=== PATIENT | male | born 1950 | race Caucasian/White ===

== ENCOUNTER → 2017-11-01 | Outpatient (CLI) | payer MEDICARE, OTHER ==
[~2017-11-01] MED LIST: ALLO300T2 PO; ASPI81TA81 PO; ASPI81TA82 PO; CLOM25CA PO; CLOP75TA PO; COZA50TA PO; EVOL1.7I IM; FENO160T PO; FISH1000 PO; GLUCTAB PO; INDO50CA PO; KRIL1CAP PO; METF500T PO; METO25TA3 PO; MULT-65 PO; OMEP20TA PO; OMEP20TA93 PO; PERC5TAB12 PO; POTA1080 PO; TAB-TAB PO
[2017-11-01 10:04] LABS: AUTOMATED NEUTROPHIL # 4.2 TH/MM3 (1.8-7.7); BASOPHIL % 0.2 % (0.0-2.0); EOSINOPHIL # 0.2 TH/MM3 (0-0.4); EOSINOPHIL % 2.6 % (0.0-4.0); HEMATOCRIT 45.2 % (39.0-51.0); HEMOGLOBIN 15.2 GM/DL (13.0-17.0); LYMPH % 31.4 % (9.0-44.0); LYMPHOCYTE # 2.3 TH/MM3 (1.0-4.8); MEAN CELL VOLUME 88.2 FL (80.0-100.0); MEAN CORPUSCULAR HEMOGLOBIN 29.7 PG (27.0-34.0); MEAN CORPUSCULAR HGB CONC 33.7 % (32.0-36.0); MEAN PLATELET VOLUME 8.2 FL (7.0-11.0); MONO % 8.3 % (0.0-8.0); MONOCYTE # 0.6 TH/MM3 (0-0.9); NEUT % 57.5 % (16.0-70.0); PLATELET COUNT 187 TH/MM3 (150-450); RED BLOOD COUNT 5.13 MIL/MM3 (4.50-5.90); RED CELL DISTRIBUTION WIDTH 14.6 % (11.6-17.2); WHITE BLOOD COUNT 7.3 TH/MM3 (4.0-11.0)
[2017-11-01 10:10] LABS: BILIRUBIN, URINE NEG (NEG); BLOOD, URINE NEG (NEG); GLUCOSE,URINE NEG (NEG); KETONE, URINE NEG (NEG); MUCUS URINE FEW /lpf (OCC); NITRITE,URINE NEG (NEG); PH, URINE 5.5 (5.0-8.5); SQUAMOUS EPITHELIAL CELL URINE <1 /hpf (0-5); URINE COLOR YELLOW (YELLW/STRAW); URINE LEUKOCYTE ESTERASE NEG (NEG)
[2017-11-01 10:17] LABS: PROTHROMBIN TIME - PATIENT 10.6 SEC (9.8-11.6)
--- NOTE | 2017-11-01 10:28 | RADRPT ---
EXAM DATE/TIME: 11/01/2017 09:45 [place] COMPARISON: No previous studies available for comparison. INDICATIONS : Evaluate for communicable diseases, pneumonia,pneumothorax. MEDICAL HISTORY : Myocardial infarction. SURGICAL HISTORY : CABG. ENCOUNTER: Initial ACUITY: 1 day PAIN SCORE: 0/10 LOCATION: Bilateral chest FINDINGS: Lungs are focally clear. No pleural effusion is evident. Cardiomediastinal contours are satisfactory. There has been sternotomy and CABG surgery with atrial clip present. CONCLUSION: No acute disease Guillermo Joiner MD on November 01, 2017 at 10:25 Board Certified Radiologist. This report was verified electronically.
[2017-11-01 10:31] LABS: ALBUMIN 4.3 GM/DL (3.4-5.0); AST (GOT) 24 U/L (15-37); BICARBONATE 24.5 MEQ/L (21.0-32.0); BLOOD UREA NITROGEN 24 MG/DL (7-18); CALCIUM 9.9 MG/DL (8.5-10.1); CHLORIDE 109 MEQ/L (98-107); CREATININE 1.71 MG/DL (0.60-1.30); GLOMERULAR FILTRATION RATE 40 ML/MIN (>89); GLUCOSE,FASTING 149 MG/DL (74-99); SODIUM (NA) 142 MEQ/L (136-145)
[2017-11-01 10:35] LABS: ALKALINE PHOSPHATASE 46 U/L (45-117); ALT (GPT) 23 U/L (12-78); TOTAL BILIRUBIN ADULT 0.6 MG/DL (0.2-1.0)
[2017-11-01 10:36] LABS: WESTERGREN SEDIMENTATION RATE 4 mm/hr (0-20)
== END ==
LOC: CPRE 09:00
PROVIDERS: ATTEND Orthopaedic Surgery
DX: Z01.812 Encounter for preprocedural laboratory examination (principal); Z01.811 Encounter for preprocedural respiratory examination; M79.609 Pain in unspecified limb; M25.50 Pain in unspecified joint; M17.11 Unilateral primary osteoarthritis, right knee; Z96.651 Presence of right artificial knee joint
CPT/HCPCS: 36415; 71046; 80053; 81001; 85025; 85610; 85652; 85730

== ENCOUNTER 2017-11-17 05:39 | Inpatient (IN) | payer MEDICARE, OTHER ==
[~2017-11-17] VITALS: Ht 172.7 cm; Wt 87.2 kg
[~2017-11-17 05:39] MED LIST changes: -ASPI81TA82 PO; -COZA50TA PO; -FISH1000 PO; -GLUCTAB PO; -OMEP20TA PO; -PERC5TAB12 PO; -TAB-TAB PO
[2017-11-17] MEDS ORDERED: SODIUM CHLORID 0.9% 500 ML IV PRN (06:15)
[2017-11-17] MEDS ORDERED: CHLORHEXIDINE GLUCONATE 2 % 1 PACK (2 CLOTHS) TOPICAL PRN (06:15)
[2017-11-17] MEDS ORDERED: VANCOMYCIN 1 GM/200 ML INJ 200 ML IV SCH (06:15)
[2017-11-17] MEDS ORDERED: METOPROLOL TARTRATE 25 MG TAB PO PRN (06:15)
[2017-11-17] MEDS ORDERED: CHLORHEXIDINE GLUCONATE 4% SOLN 120 ML BTL TOPICAL SCH (06:15)
[2017-11-17] MEDS ORDERED: POVIDONE IODINE 7.5% SCRUB 118 ML BOTTLE TOPICAL SCH (06:15)
[2017-11-17] MEDS ORDERED: LACTATED RINGER'S 1000 ML IV PRN (06:15)
[2017-11-17] MEDS ORDERED: ceFAZolin 2 GM PREMIX 50 ML IV SCH (06:15)
[2017-11-17] MEDS ORDERED: DEXAMETHASONE SOD PHOS 20 MG/5 ML VIAL IV PUSH ONE (06:15)
[2017-11-17] MEDS ORDERED: POVIDONE IODINE 5% (ANTISEPSIS KIT) 4 APPLICATIONS EACH NARE PRN (06:15)
[2017-11-17] MEDS ORDERED: ACETAMINOPHEN 1000 MG/100 ML 100 ML IV ONE (06:41)
[2017-11-17] MEDS ORDERED: ceFAZolin INJ 1,000 MG VIAL ONE (07:02)
[2017-11-17] MEDS ORDERED: EPINEPHrine HCL (1:1000) 1 MG/ML VIAL ONE (07:03)
[2017-11-17] MEDS ORDERED: GENTAMICIN SULFATE 80 MG/2 ML VIAL ONE ×2 (07:03→07:07)
[2017-11-17] MEDS ORDERED: GLIP5TAB8 PO (07:37)
[2017-11-17] MEDS ORDERED: CLOM50TA2 PO (07:37)
[2017-11-17] MEDS ORDERED: TRANEXAMIC ACID IV SCH ×2 (08:30→10:30)
[2017-11-17] MEDS ORDERED: SODIUM CHLORIDE 0.9% IV SCH ×2 (08:30→10:30)
[2017-11-17] MEDS ORDERED: ROPIVACAINE PERI-ARTICULAR INJECTION. P-ARTICULR SCH ×5 (08:30)
[2017-11-17] MEDS ORDERED: ACETAMINOPHEN/HYDROcodone 325 MG/5 MG TAB PO PRN (10:30)
[2017-11-17] MEDS ORDERED: ALUMINUM/MAGNESIUM/SIMETH 30 ML CUP PO PRN (10:30)
[2017-11-17] MEDS ORDERED: diphenhydrAMINE HCL 50 MG/ML VIAL IV PUSH PRN (10:30)
[2017-11-17] MEDS ORDERED: NALOXONE HCL 0.4 MG/ML AMP IV PUSH PRN (10:30)
[2017-11-17] MEDS ORDERED: MORPHINE SULFATE 4 MG/ML INJ IV PUSH PRN (10:30)
--- NOTE | 2017-11-17 10:37 | PD.OP ---
cc: Edilberto Amaral MD Operative Report Date of Surgery: November 17, 2017 Preoperative Diagnosis: Right knee failed medial unicondylar arthroplasty with advancing lateral compartment arthritis Postoperative Diagnosis: Same Procedure: Right knee revision total knee arthroplasty Anesthesia: Abductor canal block and general Surgeon: Edilberto Amaral Voucher Clerk(s): ANASTASIYA Mae The surgical procedure was assisted by my Advanced Registered Nurse Practitioner. My TAFFY PULLER presence was necessary throughout this case for the manipulation and positioning of the surgical extremity. My TAFFY PULLER was assisting me throughout the duration of this procedure. The skill set of an Advance Registered Nurse Practitioner was medically necessary to complete this procedure. During the surgical case, the surgical services coordinator was working at the back table and the Advance Registered Nurse Practitioner was directly assisting me. Operation and Findings: IMPLANTS: DePuy Attune: Patella: size 35. Femur, posterior stabilized size 7. Tibia, rotating platform size 7. Tibial insert, rotating platform, posterior stabilized size 5 mm thickness. ESTIMATED BLOOD LOSS: 125 cc TOURNIQUET TIME: 55 minutes at 250 mmHg pressure. JUSTIFICATION FOR PROCEDURE: The patient has end-stage osteoarthritis to the lateral compartment knee. The patient had failed his medial unicondylar arthroplasty. There is an attached conservative measures pathway form in the chart that describes the nonoperative measures that were undertaken prior to consideration of surgical management. The patient understood the risks and benefits of surgical management. See my office notes for further details PROCEDURE: The patient was brought back to the operative theatre. Adequate anesthesia was obtained. The patient received intravenous vancomycin and Ancef. The lower extremity was prepped and draped in the usual sterile fashion.The leg was exsanguinated, the tourniquet was raised. A standard anterior incision was performed followed by medial parapatellar arthrotomy was performed. There was a minimal clear yellow joint effusion. There was brownish staining of the synovium especially in the suprapatellar pouch. All of the synovium and brownish staining was removed. There were no signs of infection. End-stage arthritis was identified of the lateral compartment. No obvious loosening of the femoral or tibial component medially was identified. The polyethylene was intact medially. Osteotomy of the patella was performed. We drilled holes for the patella. We trialed the patella component. We placed an intramedullary guide into the distal femur. We ultimately resected 11 mm off of the distal femur in 5 degrees of valgus. The initial cut was done with the femoral component in place. Then we used an osteotome to remove the femoral component which was well fixed. We lost very minimal bone. The remnants of the ACL and PCL were resected. Osteotomy of the proximal tibia was performed, resecting 10 mm off of the medial side. This cut was measured off of the medial component. We undermined the component and used an osteotome to remove it and then completed with the Final Cut getting a very nice new bed of bone. No augmentation was necessary. This cut was done with 3 degrees of posterior slope using an extramedullary guide. The distal end of the guide was placed in the mid aspect of the ankle. The femur was sized, and four chamfer cuts were completed in 3 of external rotation. We determined this by the epicondylar access since the posterior condyle on the medial side had been removed at the previous surgery. We then cut the central box in the distal femur to replace the PCL. We resected the remnants of the menisci and removed osteophytes off of the femur and tibia. We then trialed the knee. We punched the tibia for the keel, and then used standard technique to cement in components. Excess cement was removed. We trialed the knee again and the final polyethylene thickness was chosen to provide extension to 0 degrees, and flexion of 140 degrees to gravity. The ligaments were appropriately balanced. Lateral release was necessary to obtain excellent patellofemoral tracking. The tourniquet was released and adequate hemostasis was obtained. An intra- articular injection of a ropivacaine cocktail was injected. The posterior knee was inspected for excess cement, which was removed. The final polyethylene was put into position after thorough irrigation. We then closed deep fascia with a #2 Stratafix followed by skin with 2-0 Vicryl followed by Dermabond dressing. Postop plan is to weight-bear as tolerated. DVT prophylaxis will be performed with SCDs, BRIDGET tejada, early mobilization, and Lovenox followed by Plavix. Edilberto Amaral MD November 17, 2017 10:37
[2017-11-17] MEDS ORDERED: Post-op Orders (for Pharmacy) XX ONE (11:02)
[2017-11-17] MEDS ORDERED: MIDAZOLAM HCL 2 MG/2 ML VIAL ONE (11:11)
--- NOTE | 2017-11-17 11:17 | HHI.PR ---
Immediate Post Op Note Procedure Date: November 17, 2017 Pre Op Diagnosis: Right knee failed medial unicondylar arthroplasty with advancing lateral compartment arthritis Post Op Diagnosis: Right knee failed medial unicondylar arthroplasty with advancing lateral compartment arthritis Surgeon: Edilberto Amaral MD Alligator Trapper(s): Madeline LANGFORD Procedure: Right knee revision total knee arthroplasty Specimen(s) removed: none Estimated blood loss: 125 cc Anesthesia: General Drains: None IVF Urinary Output (mLs): 0 (no alexander) Tourniquet time (min at mmHg) 55 mins at 250 mmHg Patient to: PACU Patient Condition: Good Implant/Devices: SEE IMPLANT LOG (if applicable) Date/Time of Procedure: SEE SURGICAL CARE RECORD Madeline Simmons November 17, 2017 11:17
[2017-11-17] MEDS: SODIUM CHLOR 0.9% 1000 ML INJ 1,000 ML IV SCH ×2 (11:18→20:30)
--- NOTE | 2017-11-17 11:54 | RADRPT ---
EXAM DATE: 11/17/2017 11:37 AM EDT AGE/SEX: 67 years / Male INDICATIONS: Post op right total knee. CLINICAL DATA: This is the patient's initial encounter. Patient reports that signs and symptoms have been present for 1 day and indicates a pain score of 2/10. MEDICAL/SURGICAL HISTORY: None. None. COMPARISON: No prior [place] exams available for comparison. FINDINGS: Status post placement of a right knee prosthesis. There is good position and alignment of the prosthe sis. The bony structures are grossly intact. Postsurgical changes are present. CONCLUSION: Good position and alignment on the postoperative study. Electronically signed by: John Cormier MD 11/17/2017 11:52 AM EDT
[2017-11-17] MEDS ORDERED: BISACODYL 10 MG SUPP RECTAL PRN (12:00)
[2017-11-17] MEDS ORDERED: MAGNESIUM HYDROXIDE SUSP 30 ML CUP PO PRN (12:00)
[2017-11-17] MEDS ORDERED: DO NOT ADM ANY ANTICOAGULANT DRUGS PRN (12:00)
--- NOTE | 2017-11-17 12:11 | PD.CONS ---
[facility] Consult Requested By Dr. Edilberto Amaral Reason for Consult Medical Management. Primary Care Physician Quinn Cueto M.D. Diagnoses: History of Present Illness This is a pleasant 64 y/o male with chronic OA of both knees, with status post Left Knee Arthroplasty, he has also Gout, Hyperlipidemia, Hypertension, GERD, BPH, With Diagnosis of Right knee failed medial unicondylar arthroplasty with advancing lateral compartment arthritis, status post Right knee revision total knee arthroplasty. has moderate Right knee pain. Review of Systems Constitutional: DENIES: Fever, Chills, Change in appetite Endocrine: DENIES: Heat/cold intolerance Eyes: DENIES: Blurred vision, Eye pain Musculoskeletal: COMPLAINS OF: Joint pain Except as stated in HPI: all other systems reviewed are Neg Past Family Social History Allergies: Coded Allergies: Ecypofa-Qge-Mwy Reductase Inhibitor (Verified Allergy, Severe, MUSCLE WEAKNESS, 11/17/17) Past Medical History Hypertension GERD Hyperlipidemia Gout BPH CAD DM II Past Surgical History Tonsillectomy Right knee surgery Reported Medications Reported Meds & Active Scripts Active Reported Glipizide 5 Mg Tab 5 Mg PO BIDAC Take 30 minutes before a meal Clomiphene (Clomiphene Citrate) 50 Mg Tab 50 Mg PO Potassium Citrate ER 10 Meq (1080 Mg) Tab 20 Meq PO DAILY Repatha PF Inj (Evolocumab PF Inj) 140 Mg/Ml Syr 140 Mg IM EVERY TWO WEEKS Omeprazole 20 Mg Tab 20 Mg PO DAILY Multi-Vitamin Daily (Multiple Vitamin) 1 Tab Tab 1 Tab PO DAILY Metoprolol Tartrate 25 Mg Tab 12.5 Mg PO BID Metformin (Metformin HCl) 500 Mg Tab 500 Mg PO BIDPC Krill Oil 1,000 mg Softgel (Krill/Om-3/Dha/Epa/Phospho/Ast) 1,000-170MG Capsule 1 Cap PO DAILY Fenofibrate 160 Mg Tab 160 Mg PO DAILY Clopidogrel (Clopidogrel Bisulfate) 75 Mg Tab 75 Mg PO DAILY Allopurinol 300 Mg Tab 300 Mg PO DAILY Aspir-81 (Aspirin) 81 Mg Tabdr 1 Tab PO DAILY Active Ordered Medications Current Medications Medications (Trade) Dose Ordered Sig/Freya Route Start Time Stop Time Status Last Admin Lactated Ringer's 1,000 ml @ 30 mls/hr Q24H PRN IV 11/17/17 06:15 11/20/17 06:14 Sodium Chloride 500 ml @ 30 mls/hr [id number] PRN IV 11/17/17 06:15 11/20/17 06:14 (Lopressor) 25 mg PARTS IDENTIFIER PRN PO 11/17/17 06:15 11/20/17 06:14 (Betadine 5% Antisepsis Kit) 1 applic PARTS IDENTIFIER PRN EACH NARE 11/17/17 06:15 11/20/17 06:14 (Chlorhexidine 2% Cloth) 3 pack PARTS IDENTIFIER PRN TOPICAL 11/17/17 06:15 11/20/17 06:14 (Betadine 7.5% Scrub) 1 applic ONCE TOPICAL 11/17/17 06:15 11/20/17 06:14 (Hibiclens 4% Top Soln) 1 applic ONCE TOPICAL 11/17/17 06:15 11/20/17 06:14 Cefazolin Sodium/ Dextrose 50 ml @ 100 mls/hr PARTS IDENTIFIER IV 11/17/17 06:15 11/18/17 06:14 11/17/17 08:40 Vancomycin/Sodium Chloride 200 ml @ 250 mls/hr PARTS IDENTIFIER IV 11/17/17 06:15 11/18/17 06:14 11/17/17 08:30 (Zyloprim) 300 mg DAILY PO 11/18/17 09:00 (Glucotrol) 5 mg BIDAC PO 11/17/17 16:00 (Glucophage) 500 mg BIDPC PO 11/17/17 18:00 (Lopressor) 12.5 mg BID PO 11/17/17 21:00 Patient Own Medication PT OWN MED: EVOLOCU... Q14D SQ 11/17/17 17:00 Future Hold (Tricor) 145 mg DAILY PO 11/18/17 09:00 (Protonix) 20 mg DAILY PO 11/18/17 09:00 Patient Own Medication PT OWN MED: POTASS... DAILY PO 11/18/17 09:00 Future Hold Sodium Chloride 1,000 ml @ 100 mls/hr Q10H IV 11/17/17 10:30 11/17/17 11:18 Cefazolin Sodium 1000 mg/Sodium Chloride 100 ml @ 200 mls/hr Q6H IV 11/17/17 15:00 11/18/17 03:29 11/17/17 14:30 (Decadron Inj) 10 mg ONCE ONCE IV 11/18/17 07:45 11/18/17 07:46 (Lovenox Inj) 40 mg Q24H SQ 11/18/17 10:00 11/27/17 10:01 (Lorton 5-325 Mg) 1 tab Q4H PRN PO 11/17/17 12:00 (Lorton 5-325 Mg) 2 tab Q4H PRN PO 11/17/17 10:30 (Theragran M Tab) 1 tab BID PO 11/18/17 21:00 01/17/18 20:59 (Zofran Odt) 4 mg Q6H PRN PO 11/17/17 12:00 11/17/17 15:49 (Colace) 100 mg BID PO 11/18/17 21:00 (Mag-Al Plus Susp Liq) 30 ml Q6H PRN PO 11/17/17 10:30 (Ambien) 5 mg HS PRN PO 11/17/17 21:00 (Dulcolax Supp) 10 mg DAILY PRN RECTAL 11/17/17 12:00 (Milk Of Magnesia Liq) 30 ml DAILY PRN PO 11/17/17 12:00 (Narcan Inj) 0.4 mg UNSCH PRN IV PUSH 11/17/17 10:30 (Benadryl Inj) 25 mg Q6H PRN IV PUSH 11/17/17 10:30 (Morphine Inj) 2 mg Q3H PRN IV PUSH 11/17/17 10:30 ([facility] Nursing Information) ALL NURSING DEPARTME... UNSCH PRN .XX 11/17/17 12:00 11/18/17 11:59 Family History Mother with Hypertension and DM II Social History Lives with his , denies toxic habits. Physical Exam Vital Signs Vital Signs Date Time Temp Pulse Resp B/P (MAP) Pulse Ox O2 Delivery O2 Flow Rate FiO2 11/17/17 11:04 97.9 93 12 124/77 (93) 93 Nasal Cannula 4 11/17/17 07:43 97.8 78 16 127/89 (102) 100 Physical Exam GENERAL: Well-developed patient, in no apparent distress. SKIN: No rashes, ecchymoses or lesions. Cool and dry. HEAD: Atraumatic. Normocephalic. No temporal or scalp tenderness. EYES: Pupils equal round and reactive. Extraocular motions intact. ENT: Nose without bleeding. NECK: Trachea midline. No JVD or lymphadenopathy. CARDIOVASCULAR: Regular rate and rhythm without murmurs, gallops, or rubs. RESPIRATORY: Clear to auscultation. Breath sounds equal bilaterally. GASTROINTESTINAL: Abdomen soft, non-tender, nondistended. MUSCULOSKELETAL: Extremities without clubbing, cyanosis, Orthotics on right knee area. Imaging Last Impressions Knee X-Ray 11/17/17 1030 Signed Impressions: CONCLUSION: Assessment and Plan Assessment and Plan 1. Severe OA of bilateral Knees With Diagnosis of Right knee failed medial unicondylar arthroplasty with advancing lateral compartment arthritis, status post Right knee revision total knee arthroplasty. 2. Hypertension to continue home medicines. 3. GERD continue Gastric protection 4. Hyperlipidemia continue Home medicines. 5. Gout by history 6. BPH continue Home medicines 7. CAD status post CABG x 2 stable 8. DM II by history on hold Metformin and Glipizide started on sliding scale and following. 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 Code Status as per Attending physician Patrick Barrow MD November 17, 2017 12:11
[2017-11-17] MEDS ORDERED: ONDANSETRON HCL 4 MG/2 ML VIAL ONE (12:12)
--- NOTE | 2017-11-17 12:48 | HHI.DCPOC ---
Discharge Care Plan Diagnosis: (1) Status post revision of total knee Your Health Problems Are: Difficulty with ADL Goals to Promote Your Health * To prevent worsening of your condition and complications * To maintain your health at the optimal level Directions to Meet Your Goals Take your medications as prescribed Follow your dietary instruction Follow activity as directed Keep your appointments as scheduled Take your immunizations and boosters as scheduled If your symptoms worsen call your PCP, if no PCP go to Urgent Care Center or Emergency Room Smoking is Dangerous to Your Health. Avoid second hand smoke Call the 24-hour hour crisis hotline for domestic abuse at Kalin Dow November 17, 2017 12:48
--- NOTE | 2017-11-17 12:49 | HHI.FF ---
Face to Face Verification Diagnosis: (1) Status post revision of total knee Physical Therapy Gait training, Transfer training, bed to chair Knee: Total knee Right LE Weight Bearing: WB as tolerated Right LE Range of Motion: Active ROM Nursing Nursing: Kaylie mandel Dressing Changes: Do not change dressing Additional Instructions First dressing change in the office I have seen patient Jermain Booth on 11/17/17. My clinical findings support the need for the requested home health care services because: Limited ability to care for self High risk of falls I certify that my clinical findings support that this patient is homebound because: Post-op weakness Unsteady gait/balance Kalin Dow November 17, 2017 12:49
[2017-11-17] MEDS ORDERED: COMMODE 3-IN-11 MIS (12:51)
[2017-11-17] MEDS ORDERED: CPMMACHINE (12:51)
[2017-11-17] MEDS ORDERED: WALKER WHEELS/F1 MIS (12:51)
[2017-11-17] MEDS ORDERED: *morphine SULFATE 4 MG/ML PERIprocedure ONLY ONE (13:54)
[2017-11-17] MEDS: ONDANSETRON ODT 4 MG TAB PO PRN (15:49)
[2017-11-17 16:00] VITALS: BP 119/68; PULSE 85; RESP 18; TEMP 97.2; O2SAT 97
[2017-11-17] MEDS ORDERED: glipiZIDE 5 MG TAB PO SCH (16:00)
[2017-11-17] MEDS ORDERED: PATIENT OWN MEDICATION SQ SCH (17:00)
[2017-11-17] MEDS: ACETAMINOPHEN/HYDROcodone 325 MG/5 MG TAB PO PRN ×2 (17:56→22:03)
[2017-11-17] MEDS ORDERED: metFORMIN HCL 500 MG TAB PO SCH (18:00)
[2017-11-17] MEDS: INSULIN ASPART SUPPLEMENTAL SCALE SQ SCH ×2 (18:07→21:07)
[2017-11-17 20:00] VITALS: BP 118/65; PULSE 88; RESP 17; TEMP 97.1; O2SAT 99
[2017-11-17] MEDS ORDERED: ZOLPIDEM TARTRATE 5 MG TAB PO PRN (21:00)
[2017-11-17] MEDS: METOPROLOL TARTRATE 25 MG TAB PO SCH (21:06)
[2017-11-18 00:01] VITALS: BP 102/55; PULSE 88; RESP 17; TEMP 97.6; O2SAT 99
[2017-11-18] MEDS: ACETAMINOPHEN/HYDROcodone 325 MG/5 MG TAB PO PRN ×4 (02:11→15:45)
[2017-11-18] MEDS: ONDANSETRON ODT 4 MG TAB PO PRN (03:26)
[2017-11-18 04:00] VITALS: BP 99/56; PULSE 82; RESP 18; TEMP 97.6; O2SAT 97
[2017-11-18] MEDS: SODIUM CHLOR 0.9% 1000 ML INJ 1,000 ML IV SCH ×2 (06:11→16:30)
[2017-11-18 06:29] LABS: HEMATOCRIT 33.8 % (39.0-51.0); HEMOGLOBIN 10.9 GM/DL (13.0-17.0); MEAN CELL VOLUME 90.2 FL (80.0-100.0); MEAN CORPUSCULAR HGB CONC 32.2 % (32.0-36.0); MEAN PLATELET VOLUME 8.4 FL (7.0-11.0); PLATELET COUNT 169 TH/MM3 (150-450); RED BLOOD COUNT 3.75 MIL/MM3 (4.50-5.90); RED CELL DISTRIBUTION WIDTH 15.4 % (11.6-17.2); WHITE BLOOD COUNT 13.9 TH/MM3 (4.0-11.0)
[2017-11-18] MEDS ORDERED: DEXAMETHASONE SOD PHOS 20 MG/5 ML VIAL IV ONE (07:45)
[2017-11-18] MEDS: METOPROLOL TARTRATE 25 MG TAB PO SCH (07:59)
[2017-11-18 08:00] VITALS: BP 112/55; PULSE 86; RESP 18; TEMP 97.5; O2SAT 99
[2017-11-18] MEDS: INSULIN ASPART SUPPLEMENTAL SCALE SQ SCH ×2 (08:00→12:12)
[2017-11-18] MEDS ORDERED: ALLOPURINOL 300 MG TAB PO SCH (09:00)
[2017-11-18] MEDS ORDERED: PANTOPRAZOLE SOD 20 MG DELAYED RELEASE TAB PO SCH (09:00)
[2017-11-18] MEDS ORDERED: FENOFIBRATE 145 MG TAB PO SCH (09:00)
[2017-11-18] MEDS ORDERED: PATIENT OWN MEDICATION PO SCH (09:00)
[2017-11-18] MEDS ORDERED: ENOXAPARIN SODIUM 40 MG/0.4 ML SYRINGE SQ SCH (10:00)
[2017-11-18 12:00] VITALS: BP 104/53; PULSE 79; RESP 18; TEMP 98.3; O2SAT 96
--- NOTE | 2017-11-18 12:50 | HHI.PR ---
Subjective Remarks This is a pleasant 64 y/o male with chronic OA of both knees, with status post Left Knee Arthroplasty, he has also Gout, Hyperlipidemia, Hypertension, GERD, BPH, With Diagnosis of Right knee failed medial unicondylar arthroplasty with advancing lateral compartment arthritis, status post Right knee revision total knee arthroplasty. has moderate Right knee pain. 11-18 patient states he is doing well. Supposed to be discharged later today to go home with home health care Discussed with patient and RN and case management Objective Vitals Vital Signs Date Time Temp Pulse Resp B/P (MAP) Pulse Ox O2 Delivery O2 Flow Rate FiO2 11/18/17 12:00 98.3 79 18 104/53 (70) 96 11/18/17 08:00 97.5 86 18 112/55 (74) 99 11/18/17 04:00 97.6 82 18 99/56 (70) 97 11/18/17 00:01 97.6 88 17 102/55 (71) 99 11/17/17 20:00 97.1 88 17 118/65 (82) 99 11/17/17 16:00 97.2 85 18 119/68 (85) 97 11/17/17 14:35 97.4 92 17 104/73 (83) 99 Nasal Cannula 2 11/17/17 14:00 83 14 132/70 (90) 99 Nasal Cannula 2 11/17/17 13:00 89 13 128/76 (93) 95 Nasal Cannula 2 I/O 11/17/17 11/17/17 11/17/17 11/18/17 11/18/17 11/18/17 07:00 15:00 23:00 07:00 15:00 23:00 Intake Total 2168 ml 240 ml 360 ml Output Total 375 ml 150 ml Balance 1793 ml 90 ml 360 ml Intake Oral 50 ml 240 ml 360 ml IV Total 2118 ml Output Urine Total 250 ml 150 ml Estimated Blood Loss 125 ml # Voids 4 # Bowel Movements 0 Result Diagram: 11/18/17 0535 Other Results Laboratory Tests Test 11/18/17 05:35 White Blood Count 13.9 TH/MM3 Red Blood Count 3.75 MIL/MM3 Hemoglobin 10.9 GM/DL Hematocrit 33.8 % Mean Corpuscular Volume 90.2 FL Mean Corpuscular Hemoglobin 29.0 PG Mean Corpuscular Hemoglobin Concent 32.2 % Red Cell Distribution Width 15.4 % Platelet Count 169 TH/MM3 Mean Platelet Volume 8.4 FL Imaging Last Impressions Knee X-Ray 11/17/17 1030 Signed Impressions: CONCLUSION: Good position and alignment on the postoperative study. Objective Remarks GENERAL: Well-developed patient, in no apparent distress. SKIN: No rashes, ecchymoses or lesions. Cool and dry. HEAD: Atraumatic. Normocephalic. No temporal or scalp tenderness. EYES: Pupils equal round and reactive. Extraocular motions intact. ENT: Nose without bleeding. NECK: Trachea midline. No JVD or lymphadenopathy. CARDIOVASCULAR: Regular rate and rhythm without murmurs, gallops, or rubs. S1- S2 no S3 or S4 RESPIRATORY: Clear to auscultation. Breath sounds equal bilaterally. GASTROINTESTINAL: Abdomen soft, non-tender, nondistended. MUSCULOSKELETAL: Extremities without clubbing, cyanosis, dressing right knee area. Insight and judgment is good Mood behaviors appropriate Procedures Date of Surgery: November 17, 2017 Preoperative Diagnosis: Right knee failed medial unicondylar arthroplasty with advancing lateral compartment arthritis Postoperative Diagnosis: Same Procedure: Right knee revision total knee arthroplasty Medications and IVs Current Medications Lactated Ringer's 1,000 ml @ 30 mls/hr Q24H PRN IV SEE LABEL COMMENTS; Start at 06:15; Stop 11/20/17 at 06:14 Sodium Chloride 500 ml @ 30 mls/hr [id number] PRN IV SEE LABEL COMMENTS; Start at 06:15; Stop 11/20/17 at 06:14 Metoprolol Tartrate (Lopressor) 25 mg GRANT ADMINISTRATOR PRN PO SEE LABEL COMMENTS; Start 11/17/17 at 06:15; Stop 11/20/17 at 06:14 Povidone Iodine (Betadine 5% Antisepsis Kit) 1 applic GRANT ADMINISTRATOR PRN EACH NARE SEE LABEL COMMENTS; Start 11/17/17 at 06:15; Stop 11/20/17 at 06:14 Chlorhexidine Gluconate (Chlorhexidine 2% Cloth) 3 pack GRANT ADMINISTRATOR PRN TOPICAL SEE LABEL COMMENTS; Start 11/17/17 at 06:15; Stop 11/20/17 at 06:14 Povidone Iodine (Betadine 7.5% Scrub) 1 applic ONCE TOPICAL ; Start 11/17/17 at 06:15; Stop 11/20/17 at 06:14 Chlorhexidine Gluconate (Hibiclens 4% Top Soln) 1 applic ONCE TOPICAL ; Start at 06:15; Stop 11/20/17 at 06:14 Dexamethasone Sodium Phosphate (Decadron Inj) 10 mg ONCE ONCE IV PUSH ; Start 11/17/17 at 06:15; Stop 11/17/17 at 06:16; Status DC Cefazolin Sodium/ Dextrose 50 ml @ 100 mls/hr GRANT ADMINISTRATOR IV Last administered on 11/17/17at 08:40; Start 11/17/17 at 06:15; Stop 11/18/17 at 06:14; Status DC Vancomycin/Sodium Chloride 200 ml @ 250 mls/hr GRANT ADMINISTRATOR IV Last administered on 11/17/17at 08:30; Start 11/17/17 at 06:15; Stop 11/18/17 at 06:14; Status DC Tranexamic Acid 873 mg/Sodium Chloride 108.73 ml @ 200 mls/ hr ONCE IV Last administered on 11/17/17at 08:58; Start 11/17/17 at 08:30; Stop 11/17/17 at 14:30 ; Status DC Ropivacaine 24.63 ml/Ketorolac Tromethamine 30 mg/Epinephrine HCl 0.5 mg/ Clonidine 80 mcg/ Sodium Chloride 100 ml @ 200 mls/hr ONCE P-ARTICULR Last administered on 11/17/17at 11:15; Start 11/17/17 at 08:30; Stop 11/17/17 at 14:30 ; Status DC Acetaminophen 100 ml @ As Directed STK-MED ONCE IV ; Start 11/17/17 at 06:41; Stop 11/17/17 at 06:42; Status DC Cefazolin Sodium (Ancef Inj) 1,000 mg STK-MED ONCE .ROUTE ; Start 11/17/17 at 07 :02; Stop 11/17/17 at 07:03; Status DC Gentamicin Sulfate (Gentamicin Inj) 160 mg STK-MED ONCE .ROUTE Last administered on 11/17/17at 09:17; Start 11/17/17 at 07:03; Stop 11/17/17 at 07:04 ; Status DC Epinephrine HCl (Adrenalin (1:1000) Inj) 1 mg STK-MED ONCE .ROUTE ; Start at 07:03; Stop 11/17/17 at 07:04; Status DC Gentamicin Sulfate (Gentamicin Inj) 80 mg STK-MED ONCE .ROUTE Last administered on 11/17/17at 09:17; Start 11/17/17 at 07:07; Stop 11/17/17 at 07:08 ; Status DC Allopurinol (Zyloprim) 300 mg DAILY PO Last administered on 11/18/17at 07:59; Start 11/18/17 at 09:00 Glipizide (Glucotrol) 5 mg BIDAC PO ; Start 11/17/17 at 16:00; Stop 11/17/17 at 16:20; Status DC Metformin HCl (Glucophage) 500 mg BIDPC PO ; Start 11/17/17 at 18:00; Stop 11/17 at 18:00; Status DC Metoprolol Tartrate (Lopressor) 12.5 mg BID PO Last administered on 11/18/17at 07:59; Start 11/17/17 at 21:00 Patient Own Medication PT OWN MED: EVOLOCU... Q14D SQ ; Start 11/17/17 at 17:00 ; Status Future Hold Fenofibrate (Tricor) 145 mg DAILY PO Last administered on 11/18/17at 07:59; Start 11/18/17 at 09:00 Pantoprazole Sodium (Protonix) 20 mg DAILY PO Last administered on 11/18/17at 07 :59; Start 11/18/17 at 09:00 Patient Own Medication PT OWN MED: POTASS... DAILY PO ; Start 11/18/17 at 09:00 ; Status Future Hold Sodium Chloride 1,000 ml @ 100 mls/hr Q10H IV Last administered on 11/17/17at 11:18; Start 11/17/17 at 10:30 Cefazolin Sodium 1000 mg/Sodium Chloride 100 ml @ 200 mls/hr Q6H IV Last administered on 11/18/17at 02:12; Start 11/17/17 at 15:00; Stop 11/18/17 at 03:29 ; Status DC Miscellaneous Information (Misc Post-op Orders (for Pharmacy)) STAT ONCE XX ; Start 11/17/17 at 11:02; Stop 11/17/17 at 11:37; Status DC Dexamethasone Sodium Phosphate (Decadron Inj) 10 mg ONCE ONCE IV Last administered on 11/18/17at 07:59; Start 11/18/17 at 07:45; Stop 11/18/17 at 07:46 ; Status DC Enoxaparin Sodium (Lovenox Inj) 40 mg Q24H SQ Last administered on 11/18/17at 10 :28; Start 11/18/17 at 10:00; Stop 11/27/17 at 10:01 Acetaminophen/ Hydrocodone Bitart ([place] 5-325 Mg) 1 tab Q4H PRN PO PAIN LESS THAN 5 ON SCALE Last administered on 11/18/17at 11:24; Start 11/17/17 at 12:00 Acetaminophen/ Hydrocodone Bitart ([place] 5-325 Mg) 2 tab Q4H PRN PO PAIN SCALE 5 TO 10; Start 11/17/17 at 10:30 Tranexamic Acid 873 mg/Sodium Chloride 108.73 ml @ 200 mls/ hr UNSCH IV Last administered on 11/17/17at 11:45; Start 11/17/17 at 10:30; Stop 11/17/17 at 11:25 ; Status DC Multivitamins/ Minerals Therapeutic (Theragran M Tab) 1 tab BID PO ; Start 11/18 at 21:00; Stop 01/17/18 at 20:59 Ondansetron HCl (Zofran Odt) 4 mg Q6H PRN PO NAUSEA OR VOMITING Last administered on 11/18/17at 03:26; Start 11/17/17 at 12:00 Docusate Sodium (Colace) 100 mg BID PO ; Start 11/18/17 at 21:00 Al Hydrox/Mg Hydrox/Simethicone (Mag-Al Plus Susp Liq) 30 ml Q6H PRN PO INDIGESTION; Start 11/17/17 at 10:30 Zolpidem Tartrate (Ambien) 5 mg HS PRN PO SLEEP; Start 11/17/17 at 21:00 Bisacodyl (Dulcolax Supp) 10 mg DAILY PRN RECTAL CONSTIPATION; Start 11/17/17 at 12:00 Magnesium Hydroxide (Milk Of Magnesia Liq) 30 ml DAILY PRN PO CONSTIPATION; Start 11/17/17 at 12:00 Naloxone HCl (Narcan Inj) 0.4 mg UNSCH PRN IV PUSH RESPIRATORY RATE LESS THAN 10; Start 11/17/17 at 10:30 Diphenhydramine HCl (Benadryl Inj) 25 mg Q6H PRN IV PUSH ITCHING; Start at 10:30 Morphine Sulfate (Morphine Inj) 2 mg Q3H PRN IV PUSH pain greater than 5; Start 11/17/17 at 10:30 Midazolam HCl (Versed Inj) 2 mg STK-MED ONCE .ROUTE ; Start 11/17/17 at 11:11; Stop 11/17/17 at 11:12; Status DC Fentanyl Citrate (fentaNYL INJ) 400 mcg STK-MED ONCE .ROUTE ; Start 11/17/17 at 11:12; Stop 11/17/17 at 11:13; Status DC Ondansetron HCl (Zofran Inj) 4 mg STK-MED ONCE .ROUTE Last administered on 11/17at 12:13; Start 11/17/17 at 12:12; Stop 11/17/17 at 12:13; Status DC Miscellaneous Information ([facility] [place] Nursing Information) ALL NURSING DEPARTME... UNSCH PRN .XX SEE LABEL COMMENTS; Start 11/17/17 at 12:00; Stop 11/18/17 at 11: 59; Status DC Morphine Sulfate (*morphine INJ PERIprocedure ONLY) 4 mg STK-MED ONCE .ROUTE Last administered on 11/17/17at 13:55; Start 11/17/17 at 13:54; Stop 11/17/17 at 13:55; Status DC Insulin Aspart (NovoLOG SUPPLEMENTAL SCALE) 1 ACHS SLIDING SCALE SQ Last administered on 11/18/17at 12:12; Start 11/17/17 at 17:00 A/P Assessment and Plan 1. Severe OA of bilateral Knees With Diagnosis of Right knee failed medial unicondylar arthroplasty with advancing lateral compartment arthritis, status post Right knee revision total knee arthroplasty. 2. Hypertension to continue home medicines. 3. GERD continue Gastric protection 4. Hyperlipidemia continue Home medicines. 5. Gout by history 6. BPH continue Home medicines 7. CAD status post CABG x 2 stable 8. DM II by history on hold Metformin and Glipizide started on sliding scale and following. DVT prophylaxis by Orthopedic surgery PT Chore Worker. Discharge Planning Discharge to home when cleared by Abhilash Dwyer DO November 18, 2017 12:50
[2017-11-18] MEDS ORDERED: SENN187 PO (12:52)
[2017-11-18 16:00] VITALS: BP 104/71; PULSE 94; RESP 18; TEMP 97.6; O2SAT 99
--- NOTE | 2017-11-18 17:48 | PD.ORT.PN ---
Subjective Subjective Remarks Patient requested to be discharge home with home health today prior to MD rounds. This was discussed with Rocio Shepard RN. Patient's labs were reviewed by myself and patient's dressing was C/D/I per RN. Education provided to patient regarding discharge and home medications. Patient was comfortable with being discharged prior to seeing providers. Objective Vitals Vital Signs Date Time Temp Pulse Resp B/P (MAP) Pulse Ox O2 Delivery O2 Flow Rate FiO2 11/18/17 16:00 97.6 94 18 104/71 (82) 99 11/18/17 12:00 98.3 79 18 104/53 (70) 96 11/18/17 08:00 97.5 86 18 112/55 (74) 99 11/18/17 04:00 97.6 82 18 99/56 (70) 97 11/18/17 00:01 97.6 88 17 102/55 (71) 99 11/17/17 20:00 97.1 88 17 118/65 (82) 99 I/O 11/17/17 11/17/17 11/17/17 11/18/17 11/18/17 11/18/17 07:00 15:00 23:00 07:00 15:00 23:00 Intake Total 2168 ml 240 ml 360 ml 600 ml Output Total 375 ml 150 ml Balance 1793 ml 90 ml 360 ml 600 ml Intake Oral 50 ml 240 ml 360 ml 600 ml IV Total 2118 ml Output Urine Total 250 ml 150 ml Estimated Blood Loss 125 ml # Voids 4 3 # Bowel Movements 0 0 Result Diagram: 11/18/17 0535 Procedures Right revision TKA Assessment & Plan Ortho Post Op Day #: 1 Problem List: Assessment and Plan POD #1: Right revision TKA 1. Patient is WBAT on his RLE 2. Lovenox followed by Plavix for DVT prophylaxis 3. Ice to the right knee PRN 4. Patient discharged home with home health and will f/u in the office with Dr. Amaral or ANASTASIYA Garner as previously scheduled. Kalin Dow November 18, 2017 17:48
[2017-11-18] MEDS ORDERED: DOCUSATE SODIUM 100 MG CAP PO SCH (21:00)
[2017-11-18] MEDS ORDERED: MULTIVITAMINS/MINERALS THERAPEUTIC TAB PO SCH (21:00)
== END 2017-11-18 17:17 | disposition home health service (06) | DRG 468 ==
LOC: HSDI 05:39 → N06B 14:52
PROVIDERS: ADMIT Orthopaedic Surgery; ATTEND Orthopaedic Surgery
PROC: 0SRC0J9 Replacement of Right Knee Joint with Synthetic Substitute, Cemented, Open Approach (ICD-10-PCS; 2017-11-17)
PROC: 0SPC0JZ Removal of Synthetic Substitute from Right Knee Joint, Open Approach (ICD-10-PCS; principal; 2017-11-17 08:32)
DX: T84.89XA Other specified complication of internal orthopedic prosthetic devices, implants and grafts, initial encounter (principal); E11.22 Type 2 diabetes mellitus with diabetic chronic kidney disease; Z79.84 Long term (current) use of oral hypoglycemic drugs; M17.11 Unilateral primary osteoarthritis, right knee; K21.9 Gastro-esophageal reflux disease without esophagitis; N40.0 Benign prostatic hyperplasia without lower urinary tract symptoms; E78.5 Hyperlipidemia, unspecified; M10.9 Gout, unspecified; I25.10 Atherosclerotic heart disease of native coronary artery without angina pectoris; Z95.1 Presence of aortocoronary bypass graft; I12.9 Hypertensive chronic kidney disease with stage 1 through stage 4 chronic kidney disease, or unspecified chronic kidney disease; N18.2 Chronic kidney disease, stage 2 (mild)
CPT/HCPCS: 73560; 82948; 85027; 86850; 86900; 86901; 94150; C1776; J0131; J0171; J0690; J0735; J1100; J1580; J1650; J1815; J1885; J2250; J2270; J2405; J2795; J3010; J3370; J7030; L1830